=== PATIENT | female | born 1975 | race Caucasian/White ===

== ENCOUNTER 2022-09-09 20:11 | Emergency (ER) | payer OTHER, SELFPAY ==
[2022-09-09 20:12] VITALS: BP 152/87; PULSE 64; RESP 14; TEMP 36.1; O2SAT 99; BMI 26.9
--- NOTE | 2022-09-09 20:37 | EDS_ITS ---
HPI History of Present Illness Chief Complaint: Other, Pain/Inj Informant: patient Narrative Narrative: Healthy 47-year-old female accidentally tripped over the gasoline pump hose as she was stepping over it, falling to the pavement as she was pumping her gas. She hit her nose on the cement, and also fell to both hands. Her right hand is hurting, the left one is okay, but she is more concerned about her nose, she is having pain, swelling, and a laceration. No loss of consciousness, changes in her vision, nausea, vomiting, or other injuries. [facility] Medical History (Updated 09/09/22 @ 21:[address] Ozzie Valadez MD) No acute medical problems Medical History no medical history no medical history Home Medications NK 09/09/22 [History Last Taken Unknown] Allergy/AdvReac Type Severity Reaction Status Date / Time No Known Allergies Allergy Verified 09/09/22 20:19 Social History Smoking Status: Never smoker ROS ROS ED Eyes Eyes: Denies blurry vision or change in vision ENT ENT ED: Reports as per HPI and nose pain; Denies ear discharge or ear pain Gastrointestinal Gastrointestinal: Denies nausea or vomiting Musculoskeletal Musculoskeletal: Reports as per HPI and extremity pain; Denies back pain or neck pain Integumentary Reports as per HPI and Abrasions Neurologic Neurologic: Denies headache(s), paresthesias or weakness EXAM Physical Exam Const Vital Signs: 09/09/22 20:12 Temperature 97 F L Temperature Source Temporal Pulse Rate 64 Respiratory Rate 14 Blood Pressure 152/87 H Blood Pressure Mean 108 Pulse Ox 99 Oxygen Delivery Method Room Air Positive well nourished and well developed General Appearance ED: well developed and NAD HEENT HEENT Narrative: Localized trauma to the nose/nasal bone, there is an upside down U-shaped abrasion/laceration, it is partial-thickness only, and there is a very superficial abrasion/avulsion of the epidermis at the superiormost aspect. The wound edges do not distract, and it is cutaneous-deep at best. There is a small speck of foreign material. She has mild swelling that is symmetric around this, nasal bone tenderness no deformities no epistaxis, and no crepitance/instability. No other areas of facial tenderness, no infraorbital hypoesthesia. Eyes PERRL and EOMs intact bilaterally General Eye ED: Yes other Other Details: No extraocular entrapment or pain with extraocular movements Neck full ROM General: Negative for tenderness Extremity normal to inspection and full ROM Extremity Narrative: Left hand nontender. Right hand: Tender at the ulnar aspect of the distal fifth metacarpal, but dorsally the bone is nontender. There are no deformities including rotational deformities of the fifth digit. FDS, FDP, extensor is all intact all fingers. No other extremity areas of tenderness/injury. Neuro oriented x3, CN's II-XII intact bilaterally, moves all extremities, no focal motor deficits, no sensory deficits noted and gait normal Psych mental status grossly normal and thought process normal Skin Skin Narrative: Nasal partial-thickness laceration see above MDM MDM MDM Narrative Medical decision making narrative: Three-view x-rays of the right hand are negative on my interpretation and three- view x-ray series of the nasal bones are negative on my interpretation, radiology was in agreement on both of these. The small pebble foreign body was seen on the nasal bone x-rays, and removed gently by nursing after applying let to the nose and cleansing the wound. I do not think this needs to be sutured, there is a small avulsion of the epidermis, and I do not think suturing these edges together would be beneficial cosmetically, and the laceration is not subcutaneous. I discussed this with she and her and they are both in agreement, supportive care advised for both injuries, we bandaged her nose with bacitracin advised to continue doing so at home. Radiography Diagnostic Testing: Clinical Impression(s) from Imaging Studies Hand X-Ray 09/09/22 20:55 IMPRESSION: Negative. Specifically, the fifth ray appears normal. Electronically Signed: Jose Thomas MD at 21:08 EDT , Nasal Bones X-Ray 09/09/22 20:55 IMPRESSION: Nasal bridge soft tissue injury with small debris. No finding of fracture. Electronically Signed: Jose Thomas MD at 21:10 EDT , Discharge Plan Triage Chief Complaint: Other, Pain/Inj ED Provider: Ozzie Valadez Dx/Rx/DC Orders Clinical Impression: Contusion of nose, Abrasion of nose, Contusion of hand, right, Fall from slip, trip, or stumble Instructions: ED Nasal Contusion Prescriptions: No Action NK Primary Care Provider: Oren Bautista Referrals: Oren Bautista, DO [Primary Care Provider] - 3-5 Days if not improving Disposition Disposition: Home, Self Care
--- NOTE | 2022-09-09 20:55 | RAD_ITS ---
INDICATION: injury: attn 5th ray EXAMINATION/TECHNIQUE: X-RAY - RIGHT XR Hand Min 3 Views 3 VIEWS COMPARISON: None FINDINGS: SOFT TISSUES: No soft tissue swelling or gas. No radiopaque foreign body. BONES/JOINTS: No acute fracture or subluxation. Normal alignment. Preservation of the joint spaces. No sclerotic or destructive changes observed. RAD/Hand Min 3 Views IMPRESSION: Negative. Specifically, the fifth ray appears normal. Electronically Signed: Jose Thomas MD at 21:08 EDT ,
--- NOTE | 2022-09-09 20:55 | RAD_ITS ---
INDICATION: Trauma EXAMINATION/TECHNIQUE: X-RAY - XR Nasal Bones Min 3 Views COMPARISON: None FINDINGS: SOFT TISSUES: Laceration over the nasal bridge with a small focus of radiopaque debris. BONES/TMJs: No fracture or subluxation. No sclerotic or destructive changes observed. RAD/Nasal Bones min 3 Views IMPRESSION: Nasal bridge soft tissue injury with small debris. No finding of fracture. Electronically Signed: Jose Thomas MD at 21:10 EDT ,
[2022-09-09] MEDS: Lidocaine/Epi/Tetracaine 50 ML 1 APPLIC TOPICAL (21:05)
[2022-09-09 21:54] VITALS: RESP 14
== END 2022-09-09 22:03 | disposition home or self-care (01) ==
PROVIDERS: Emergency Provider Emergency Medicine; PCP Student in an Organized Health Care Education/Training Program; Visit Provider Emergency Medicine
DX: S00.83XA Contusion of other part of head, initial encounter (principal); S60.221A Contusion of right hand, initial encounter; W19.XXXA Unspecified fall, initial encounter
CPT/HCPCS: 70160; 73130; 99283